=== PATIENT | female | born 1955 | race Caucasian/White ===

== ENCOUNTER 2018-12-06 20:40 | Observation (INO) | payer OTHER ==
[2018-12-06] MEDS ORDERED: DILTIAZEM 25 MG/5 ML VIAL IVP ONE (20:48)
[2018-12-06] MEDS ORDERED: MAGNESIUM SULF 2 GM/WATER 50 ML IV ONE (20:49)
[2018-12-06] MEDS ORDERED: MAGNESIUM SULF 2 GM/WATER 50 ML BAG IV ONE (20:50)
[2018-12-06] MEDS ORDERED: DILTIAZEM HCL/D5W 125 ML IV SCH (21:00)
[2018-12-06 21:08] LABS: INR 0.91 (0.83-1.16); PROTIME(PATIENT) 12.5 SEC (12.0-15.0)
--- NOTE | 2018-12-06 21:26 | EDPHY ---
H & P Time Seen by Provider: 12/06/18 20:40 HPI/ROS: HPI Palpitations. Shortness of breath. 63-year-old female by ambulance from [facility]. She is visiting from [place] with family. She arrived here yesterday. EMS reports that 20 min prior to arrival she developed sudden-onset sensation of palpitations and shortness of breath and a sensation of fullness in her upper chest and throat. They report room air pulse oximetry on arrival at 84%. They put 4 L of nasal cannula oxygen on her and her pulse oximetry came up to 98%. On arrival to the emergency department she is now feeling better but is still complaining of palpitations. EMS reports probable rapid atrial fibrillation. She does have a history of coronary artery disease but no prior history of atrial fibrillation. ROS: Constitutional: No fever, no chills. No weakness. Eyes: No discharge. No changes in vision. ENT: No sore throat. As above. No nasal congestion or rhinorrhea. Respiratory: No cough. As. Cardiac: No chest pain, as. Gastrointestinal: No abdominal pain, no vomiting, no diarrhea. Genitourinary: No hematuria. No dysuria or increased frequency with urination. Musculoskeletal: No back pain. No neck pain. No myalgias or arthralgias. Skin: No rashes. Neurological: No headache. No focal weakness or altered sensation. Past medical history: Coronary artery disease, , hypertension. Prescription medications include losartan. Social history: Nonsmoker. Here with family. As above. No alcohol PE Physical Exam: General Appearance: Alert, she appears uncomfortable but she is not in distress. This patient is responding to questions appropriately and in full sentences. This patient appears well-hydrated and well-nourished. Eyes: Pupils equal and round no pallor or injection. No lid edema, erythema or injection. ENT, Mouth: Mucous membranes are moist. The pharyngeal tissues are unremarkable. No edema or swelling. No asymmetry suggestive of abscess. No erythema or exudates. No cervical, submandibular, submental lymphadenopathy. No masses appreciated on palpation of the soft tissues of her neck. Respiratory: There are no retractions, lungs are clear to auscultation anteriorly with good air movement bilaterally. No tachypnea. Cardiovascular: Irregular irregular rhythm. Tachycardia.. No murmur appreciated. Gastrointestinal: Abdomen is soft and nontender, no masses, bowel sounds normal. No focal tenderness at McBurney's point. No Vaughan sign. Neurological: Motor sensory function is grossly intact. Cranial nerves are normal. Gait is normal. Skin: Warm and dry, no rashes. Musculoskeletal: Neck is supple and nontender. Extremities are symmetrical. All joints range without pain or impingement. Psychiatric: No agitation. No depression. Database: EKG: EKG time is 8:45 p.m.; EKG shows a narrow complex atrial fibrillation with ventricular rate of 156. The QRS, QT intervals are within normal limits. Diffuse ST depressions in lateral and precordial leads. No evidence of right heart strain. Interpreted by me. EKG time is 8:53 p.m.; EKG shows a narrow complex normal sinus rhythm with a ventricular rate of 77. Artifact noted. The WA, QRS, QT intervals are within normal limits. There are no ST-T wave changes indicative of ischemic or injury pattern. No evidence of right heart strain. Interpreted by me. Imaging: Chest x-ray AP portable; the cardiac mediastinal silhouette is unremarkable. No evidence of infiltrate or pneumothorax. No acute cardiopulmonary disease process noted. Interpreted by me. Soft tissue neck x-ray series: No evidence of epiglottitis or obstructive process. Interpreted by me. Procedures: Emergency department course: Vital signs on arrival to the emergency department, initial blood pressure is 169/64. Heart rate 155. radiation monitor displays narrow complex atrial fibrillation with RVR. IV placed x2. Patient started on slow IV diltiazem drip for rate control. Patient given 2 g of IV magnesium. Patient received approximately 10 mg of IV diltiazem and converted to a sinus rhythm with ventricular rate in the upper 70s. 9:40 p.m., patient re-evaluated, patient resting comfortably at this time. Blood pressure is 124/92. Patient is on 4 L of nasal cannula oxygen with pulse oximetry of 98%. radiation monitor shows a narrow complex sinus rhythm with ventricular rate of 74. Results of diagnostic workup discussed with the patient and her family. Plan for admission discussed. All of their questions were answered. Hospitalist paged. 9:45 p.m., case discussed with on-call hospitalist Dr. Carlene Phipps. Patient accepted for admission to the hospitalist service. Patient's remaining emergency department course under my care has been uneventful. She was admitted in stable condition Step-Down Unit. Differential Diagnosis: The differential diagnosis on this patient includes but is not limited to atrial fibrillation with rapid ventricular response, pulmonary embolism, acute coronary syndrome. This represents a partial list of diagnoses considered. These considerations are based on history, physical exam, past history, reassessment and diagnostic testing. Smoking Status: Never smoked Constitutional: Initial Vital Signs Temperature (C) 37.4 C 12/06/18 20:40 Heart Rate 155 H 12/06/18 20:40 Respiratory Rate 20 12/06/18 20:40 Blood Pressure 169/64 H 12/06/18 20:40 O2 Sat (%) 98 12/06/18 20:40 O2 Delivery Mode Nasal Cannula O2 (L/minute) 4 Allergies/Adverse Reactions: aspirin Allergy (Verified 12/06/18 21:23) codeine Allergy (Verified 12/06/18 21:23) losartan Allergy (Verified 12/06/18 20:48) Penicillins Allergy (Verified 12/06/18 21:23) Home Medications: Medication Instructions Recorded Atenolol 12/06/18 Calcium 12/06/18 Hydrochlorothiazide 12/06/18 Potassium Chloride 12/06/18 Pravastatin Sodium 12/06/18 Vitamin D3 12/06/18 Medical Decision Making - Diagnostics Imaging Results: Imaging Impressions Soft Tissue Neck X-Ray 12/06/18 21:05 Impression: 1. No significant swelling of the tonsils. 2. Facet hypertrophy mid to lower cervical spine. 3. Atherosclerotic calcifications noted around the carotid bulb level bilaterally. Chest X-Ray 12/06/18 21:11 Impression: 1. Poor inspiration with mild compressive atelectatic changes at the lung bases. 2. Mild cardiomegaly. - Data Points Laboratory Results: Laboratory Results 12/06/18 20:48 12/06/18 20:40 12/06/18 12/06/18 12/06/18 20:54 20:54 20:48 WBC RBC Hgb POC Hgb 16.0 gm/dL gm/dL (12.6-16.3) Hct POC Hct 47 % % (38-47) MCV MCH MCHC RDW Plt Count PT 12.5 SEC SEC (12.0-15.0) INR 0.91 (0.83-1.16) APTT 26.2 SEC SEC (23.0-38.0) D-Dimer 0.39 ug/mLFEU ug/mLFEU (0.00-0.50) POC Sodium 142 mEq/L mEq/L (135-145) Sodium POC Potassium 3.3 mEq/L mEq/L (3.3-5.0) Potassium POC Chloride 100 mEq/L mEq/L (97-110) Chloride Carbon Dioxide POC Total CO2 27 mEq/L mEq/L (22-31) Anion Gap POC BUN 8 mg/dL mg/dL (7-23) BUN Creatinine POC Creatinine 0.4 mg/dL L mg/dL (0.6-1.0) Estimated GFR Glucose POC Glucose 121 mg/dL H mg/dL (70-100) Calcium POC Troponin I 0.00 ng/mL ng/mL (0.00-0.08) TSH 12/06/18 12/06/18 20:48 20:40 WBC 13.01 10^3/uL H 10^3/uL (3.80-9.50) RBC 4.87 10^6/uL 10^6/uL (4.18-5.33) Hgb 14.3 g/dL g/dL (12.6-16.3) POC Hgb Hct 42.5 % % (38.0-47.0) POC Hct MCV 87.3 fL fL (81.5-99.8) MCH 29.4 pg pg (27.9-34.1) MCHC 33.6 g/dL g/dL (32.4-36.7) RDW 13.2 % % (11.5-15.2) Plt Count 271 10^3/uL 10^3/uL (150-400) PT INR APTT D-Dimer POC Sodium Sodium 136 mEq/L mEq/L (135-145) POC Potassium Potassium 3.6 mEq/L mEq/L (3.5-5.2) POC Chloride Chloride 98 mEq/L mEq/L (97-110) Carbon Dioxide 25 mEq/l mEq/l (22-31) POC Total CO2 Anion Gap 13 mEq/L mEq/L (6-14) POC BUN BUN 10 mg/dL mg/dL (7-23) Creatinine 0.5 mg/dL L mg/dL (0.6-1.0) POC Creatinine Estimated GFR > 60 Glucose 121 mg/dL H mg/dL (70-100) POC Glucose Calcium 9.9 mg/dL mg/dL (8.5-10.4) POC Troponin I TSH Pending Medications Given: Magnesium Sulfate (Magnesium Sulf 2 Gm (Premix)) 50 mls @ 50 mls/hr IV EDNOW ONE Stop: 12/06/18 21:48 Last Admin: 12/06/18 20:52 Dose: 50 mls Discontinued Medications Diltiazem HCl (Cardizem 25 Mg/5 Ml Vial) 25 mg IVP EDNOW ONE Stop: 12/06/18 20:49 Last Admin: 12/06/18 21:08 Dose: 5 mg Point of Care Test Results: Chemistry 12/06/18 12/06/18 20:54 20:54 POC Sodium 142 mEq/L mEq/L (135-145) POC Potassium 3.3 mEq/L mEq/L (3.3-5.0) POC Chloride 100 mEq/L mEq/L (97-110) POC Total CO2 27 mEq/L mEq/L (22-31) POC BUN 8 mg/dL mg/dL (7-23) POC Creatinine 0.4 mg/dL L mg/dL (0.6-1.0) POC Glucose 121 mg/dL H mg/dL (70-100) POC Troponin I 0.00 ng/mL ng/mL (0.00-0.08) ISTAT H&H 12/06/18 20:54 POC Hgb 16.0 gm/dL gm/dL (12.6-16.3) POC Hct 47 % % (38-47) Departure - Departure Disposition: [facility] Inpatient Acute Clinical Impression: Atrial fibrillation with rapid ventricular response, Dyspnea, Hypoxia Referrals: Patient,NotPresent [Primary Care Provider] - As per Instructions
[2018-12-06] MEDS ORDERED: ONDANSETRON DISINTEGRATING 4 MG TAB PO PRN (22:29)
[2018-12-06] MEDS ORDERED: ACETAMINOPHEN 325 MG TAB PO PRN (22:29)
[2018-12-06] MEDS ORDERED: ONDANSETRON 4 MG/2 ML VIAL IVP PRN (22:29)
[2018-12-06] MEDS ORDERED: POTASSIUM CL 20 MEQ TAB PO ONE (22:32)
[2018-12-06] MEDS ORDERED: CEPACOL LOZENGE PO ONE (22:57)
--- NOTE | 2018-12-06 22:58 | CPEKG ---
Test Reason : OPEN Blood Pressure : / mmHG Vent. Rate : 077 BPM Atrial Rate : 077 BPM P-R Int : 169 ms QRS Dur : 086 ms QT Int : 403 ms P-R-T Axes : 018 001 002 degrees QTc Int : 457 ms Sinus rhythm Confirmed by Ai Hebert ([id number]) on 12/06/2018 10:58:26 PM Referred By: PHYSICIAN ED Confirmed By:Ai Hebert
--- NOTE | 2018-12-06 22:58 | CPEKG ---
Test Reason : OPEN Blood Pressure : / mmHG Vent. Rate : 156 BPM Atrial Rate : 156 BPM P-R Int : 111 ms QRS Dur : 087 ms QT Int : 262 ms P-R-T Axes : 000 002 250 degrees QTc Int : 422 ms Atrial fibrillation with rapid V-rate Repolarization abnormality, prob rate related Confirmed by Ai Hebert ([id number]) on 12/06/2018 10:58:26 PM Referred By: PHYSICIAN ED Confirmed By:Ai Hebert
--- NOTE | 2018-12-07 02:31 | PDGENHP ---
History and Physical - Chief Complaint Shortness of breath - History of Present Illness 63 yo F w/ hx of HTN and HLD presents with shortness of breath. The patient is visiting from [place]. She tells me she noticed a sore throat this morning. This progressed in severity throughout the day. Then, suddenly around 7 PM, she began to feel very short of breath and called EMS for evaluation. In the ED she was initially noted to be in AF w/ RVR with HR in the 150's. She received a diltiazem bolus and quickly converted back to sinus rhythm with some improvement in her symptoms. She does continue to complain of sore, swollen throat. She is speaking and swallowing normally. She also remains mildly hypoxic at this time. She is being admitted for evaluation of new AF and hypoxia. Case discussed with Dr. Phipps; records reviewed and summarized above. History Information - Allergies/Home Medication List Allergies/Adverse Reactions: aspirin Allergy (Mild, Verified 12/06/18 22:17) codeine Allergy (Mild, Verified 12/06/18 22:17) losartan Allergy (Mild, Verified 12/06/18 22:17) Penicillins Allergy (Mild, Verified 12/06/18 22:17) Home Medications: Albuterol Sulfate [Ventolin Hfa] 1 puffs IH Q6H PRN 12/06/18 [Last Taken Unknown ] Alendronate Sodium [Fosamax 70 MG (*)] 70 mg PO TH@0700 12/06/18 [Last Taken ] Atenolol [Tenormin 25 mg (*)] 25 mg PO BID 12/06/18 [Last Taken 12/06/18 09:00] Ergocalciferol (Vitamin D2) [Vitamin D2] 2,000 unit PO DAILY 12/06/18 [Last Taken 12/06/18 09:00] Hydrochlorothiazide [HCTZ (*)] 25 mg PO DAILY 12/06/18 [Last Taken 12/06/18 09: 00] Potassium Chloride [Klor-Con 10] 10 meq PO DAILY 12/06/18 [Last Taken 12/06/18 09:00] Pravastatin Sodium 40 mg PO HS 12/06/18 [Last Taken 12/05/18 21:00] I have personally reviewed and updated: family history, medical history - Past Medical History hypertension, hyperlipidemia - Surgical History Additional surgical history: Tubal ligation - Family History Positive for: CAD (Father had [place] at age 81) - Social History Smoking Status: Never smoked Review of Systems Review of Systems: ROS: 10pt was reviewed & negative except for what was stated in HPI & below Physical Exam Physical Exam: Temp Pulse Resp BP Pulse Ox 37.4 C 77 18 133/86 H 97 12/06/18 20:40 12/06/18 22:27 12/06/18 22:27 12/06/18 22:27 12/06/18 22:27 O2 (L/minute) 4 Constitutional: no apparent distress, not in pain Eyes: PERRL, EOMI Ears, Nose, Mouth, Throat: moist mucous membranes, other (Mild pharyngeal erythema) Cardiovascular: regular rate and rhythym, no murmur, rub, or gallop Respiratory: no respiratory distress, clear to auscultation Gastrointestinal: normoactive bowel sounds, soft, non-tender abdomen Skin: warm, normal color Neurologic: AAOx3, CN II-XII Intact Psychiatric: interacting appropriately, not anxious Lab Data & Imaging Review 12/06/18 20:48 12/06/18 20:40 WBC 13.01 10^3/uL (3.80-9.50) H 12/06/18 20:48 RBC 4.87 10^6/uL (4.18-5.33) 12/06/18 20:48 Hgb 14.3 g/dL (12.6-16.3) 12/06/18 20:48 POC Hgb 16.0 gm/dL (12.6-16.3) 12/06/18 20:54 Hct 42.5 % (38.0-47.0) 12/06/18 20:48 POC Hct 47 % (38-47) 12/06/18 20:54 MCV 87.3 fL (81.5-99.8) 12/06/18 20:48 MCH 29.4 pg (27.9-34.1) 12/06/18 20:48 MCHC 33.6 g/dL (32.4-36.7) 12/06/18 20:48 RDW 13.2 % (11.5-15.2) 12/06/18 20:48 Plt Count 271 10^3/uL (150-400) 12/06/18 20:48 PT 12.5 SEC (12.0-15.0) 12/06/18 20:48 INR 0.91 (0.83-1.16) 12/06/18 20:48 APTT 26.2 SEC (23.0-38.0) 12/06/18 20:48 D-Dimer 0.39 ug/mLFEU (0.00-0.50) 12/06/18 20:48 POC Sodium 142 mEq/L (135-145) 12/06/18 20:54 Sodium 136 mEq/L (135-145) 12/06/18 20:40 POC Potassium 3.3 mEq/L (3.3-5.0) 12/06/18 20:54 Potassium 3.6 mEq/L (3.5-5.2) 12/06/18 20:40 POC Chloride 100 mEq/L (97-110) 12/06/18 20:54 Chloride 98 mEq/L (97-110) 12/06/18 20:40 Carbon Dioxide 25 mEq/l (22-31) 12/06/18 20:40 POC Total CO2 27 mEq/L (22-31) 12/06/18 20:54 Anion Gap 13 mEq/L (6-14) 12/06/18 20:40 POC BUN 8 mg/dL (7-23) 12/06/18 20:54 BUN 10 mg/dL (7-23) 12/06/18 20:40 Creatinine 0.5 mg/dL (0.6-1.0) L 12/06/18 20:40 POC Creatinine 0.4 mg/dL (0.6-1.0) L 12/06/18 20:54 Estimated GFR > 60 12/06/18 20:40 Glucose 121 mg/dL (70-100) H 12/06/18 20:40 POC Glucose 121 mg/dL (70-100) H 12/06/18 20:54 Calcium 9.9 mg/dL (8.5-10.4) 12/06/18 20:40 Magnesium 2.1 mg/dL (1.6-2.3) 12/06/18 21:55 POC Troponin I 0.00 ng/mL (0.00-0.08) 12/06/18 20:54 NT-Pro-B Natriuret Pep 219 pg/mL (0-125) H 12/06/18 21:55 TSH 1.140 uIU/mL (0.465-4.680) 12/06/18 20:40 Group A Strep Screen NEGATIVE (NEGATIVE) 12/07/18 00:50 Imaging Review: Imaging Impressions Soft Tissue Neck X-Ray 12/06/18 21:05 Impression: 1. No significant swelling of the tonsils. 2. Facet hypertrophy mid to lower cervical spine. 3. Atherosclerotic calcifications noted around the carotid bulb level bilaterally. Chest X-Ray 12/06/18 21:11 Impression: 1. Poor inspiration with mild compressive atelectatic changes at the lung bases. 2. Mild cardiomegaly. Visualized and Interpreted Chest x-ray results: Yes Chest X-Ray results: other (Mild vascular congestion, cardiomegaly) Visualized and Interpreted EKG results: Yes EKG Interpretation: Positive for: other (AF w/ RVR) Assessment & Plan Assessment: 63 yo F w/ HTN and HLD presents with AF w/ RVR and hypoxia. Plan: 1. AF w/ RVR - New diagnosis for this patient. She converted to NSR after a dose of diltiazem in the ED. [id number] of 3 denotes need for ongoing anticoagulation. - Monitor on telemetry - Already on atenolol for HTN as an outpatient, will continue - I discussed anticoagulation with patient, she would like to think about it and perhaps will defer until she sees her doctor in [place] 2. AHRF - Mild at this point requiring only 2 L/min O2 to maintain O2 sats > 89% . Cardiomegaly and vascular congestion on CXR (personally reviewed/interpreted) suspicious for possible CHF. - Continue O2 PRN to maintain O2 sats > 89% - TTE ordered for further evaluation - Consider furosemide if not improving - Incentive spirometry ordered 3. Sore throat - I suspect this is likely viral. Patient is complaining about feeling like her throat is closing up, but she is speaking and swallowing normally. Soft tissue XR in the ED was reassuring. - Respiratory PCR and strep screen ordered 4. HTN, HLD - Continue home medications Diet - Cardiac Code - Full Ppx - LMWH Dispo - Admit under observation status
[2018-12-07 06:29] LABS: PLATELET COUNT 251 10^3/uL (150-400)
[2018-12-07] MEDS ORDERED: Ergocalciferol (Vitamin D2) 2,000 UNIT PO SCH (09:00)
[2018-12-07] MEDS ORDERED: ENOXAPARIN 40 MG/0.4 ML SYR SC SCH (09:00)
[2018-12-07] MEDS ORDERED: ATENOLOL 25 MG TAB PO SCH (09:00)
[2018-12-07] MEDS ORDERED: HYDROCHLOROTHIAZIDE 25 MG TAB PO SCH (09:00)
[2018-12-07] MEDS ORDERED: ALBUTEROL 3 ML DEYVIAL IH PRN (09:15)
--- NOTE | 2018-12-07 09:28 | ASMTCMCOM ---
CM Note CM Note Notes: Pt is a 63 yo F presents with shortness of breath, atrial fib, apid ventricular resp, and hypoxia. Pt is visiting from [place]. Pt is admitted under observation, will likely discharge independently once medically stable. No CM needs identified at this time. CM available if needs arise. Plan: Independent once medically stable. Date Signed: 12/07/2018 09:27 AM Electronically Signed By:CATIE Webb
[2018-12-07 12:48] VITALS: BP 142/57
--- NOTE | 2018-12-07 15:35 | PDDCSUM ---
Discharge Summary Discharge Summary: Date of Admission: 12/06/2018 Date of Discharge: 12/07/2018 Consults: N/A Procedures: CXR, Neck Soft Tissue XR Followup: PCP Hospital Course Problem List: 63 yo F w/ HTN and HLD presented with AF w/ RVR and hypoxia. Plan: 1. AF w/ RVR - New diagnosis for this patient. She converted to NSR after a dose of diltiazem in the ED. [id number] of 3. - Monitored on telemetry, continued to be in NSR upon discharge - Already on atenolol for HTN as an outpatient, will continue - I discussed anticoagulation with patient, she would like to think about it and perhaps will defer until she sees her doctor in [place] 2. AHRF - Patient saturating in 90's on RA upon discharge. Mild Cardiomegaly and vascular congestion on CXR suspicious for possible CHF. - Weaned off of 02 - TTE ordered for further evaluation 3. Sore throat - I suspect this is likely viral. Patient is complaining about feeling like her throat is closing up, but she is speaking and swallowing normally. Soft tissue XR in the ED was reassuring. - Respiratory PCR and strep screen negative on admission 4. HTN, HLD - Continue home medications Time spent on discharge was >35 minutes with >50% of time spent on patient education and counseling.
--- NOTE | 2018-12-07 15:41 | ASDISCHSUM ---
Discharge Information Plan Status:Home with No Needs Medically Cleared to Leave: Discharge Date: D/C Disposition:Home, Routine, Self-Care ADT D/C Disposition: Projected Discharge Date:12/07/2018 12:00 AM Transportation at D/C:Family Discharge Delay Reason: Follow-Up Date:12/07/2018 12:00 AM Discharge Slot: Final Diagnosis: Placement Information Patient Contact Information Contact Name:OMAYRA Relationship:Corona Address: Work Phone: City: [facility] Phone: State/Zip Code: Email: Financial Information Financial Class:Medicare Advantage Plans Primary Plan Desc:[employer] [employer]ICARE ADV Primary Plan Number:[id number] Secondary Plan Desc: Secondary Plan Number: Assessment Information [facility] Progress Note CM Note CM Note Notes: Pt is a 63 yo F presents with shortness of breath, atrial fib, apid ventricular resp, and hypoxia. Pt is visiting from [place]. Pt is admitted under observation, will likely discharge independently once medically stable. No CM needs identified at this time. CM available if needs arise. Plan: Independent once medically stable. Date Signed: 12/07/2018 09:27 AM Electronically Signed By:CATIE Webb Case Management Discharge Plan Note Case Management Discharge Discharge Order Complete? Answers: Yes Patient to Obtain Answers: via Family Medications Transportation Arranged Answers: Family/Friends Discharge Comments Notes: CM met with pt to discuss discharge needs. Reports she is just visiting and can schedule follow-up prior to discharge. Her and daughter are supportive and able to transport and maintain medications. No other CM needs identified. Date Signed: 12/07/2018 03:39 PM Electronically Signed By:CATIE Webb Intervention Information Intervention Type:*Incorrect Registration Date of Service:12/07/2018 06:50 AM Patient Type:Inpatient Staff Member:HE Ruiz, Nola Hours: Discipline: Severity: Comment:
--- NOTE | 2018-12-07 15:41 | ASMTLACE ---
LACE Length of stay for Answers: Less than 1 day current admission Comorbidities - select Answers: Coronary Artery Disease all that apply Other Notes: HTN; HLD # of Emergency department Answers: 1-2 visits in the last 6 months Score: 4 Date Signed: 12/07/2018 03:41 PM Electronically Signed By:CATIE Webb
--- NOTE | 2018-12-07 16:21 | ECHO ---
[email or web address] [address] [address] Main: [phone] Fax: [email or web address] Echocardiogram Name: MANDY HOYOS MR#: [id number] Study Date: 12/07/2018 Study Time: 08:12 AM Date of : 1955 Age: 63 year(s) Height: 152.4 cm (60 in.) Weight: 74.84 kg (165 lb.) BSA: 1.72 m2 Gender: Female Examination: Echo Indication: New atrial fibrillation/hypoxia Image Quality: Good Contrast: Requested by: Bryant Workman BP: 121 mmHg/49 mmHg Heart Rate: Rhythm: Indication: New atrial fibrillation/hypoxia Procedure Staff Paint And Table Edger: Kathy Austin [facility] Reading Physician: Marcin Mathis MD Requesting Provider: Conclusions: Normal size left ventricle. The ejection fraction is estimated to be 65-70 %. No regional wall motion abnormality. Normal diastolic LV function. Normal appearing valvular structures. Mild mitral valve regurgitation is present. Trivial to mild tricuspid valve regurgitation. RVSP is 32mmHG.. No pericardial effusion. No prior study for comparison. Measurements: Chambers Valvular Assessment AV/MV Valvular Assessment TV/PV Normal Normal Normal Name Value Range Name Value Range Name Value Range Ao Julia (MM): 2.6 cm (2.2 cm-3.7 AV Vmax: 1.64 m/s (1 m/s-1.7 TR Vmax: 2.59 mm/s ( - ) cm) m/s) TR PGmax: 27 mmHg ( - ) IVSd (2D): 0.8 cm (0.6 cm-1.1 AV meanP mmHg ( - ) syst. PAP: 32 mmHg ( - ) cm) MV E Vmax: 0.73 m/s ( - ) LVDd (2D): 4.5 cm (3.9 cm-5.3 MV A Vmax: 0.97 m/s ( - ) cm) MV E/A: 0.75 ( - ) LVDs (2D): 2.4 cm (2.1 cm-4 cm) LVPWd (2D): 0.8 cm ( - ) LVEF (BP): 73 % (>=55 %) EF Range: 65-70 % Continued Measurements: Chambers Valvular Assessment AV/MV Valvular Assessment TV/PV Patient: MANDY HOYOS Study Date: 12/07/2018 Page 1 of 2 08:12 AM Name Value Name Value Name Value LADs: 3.8 cm MV E' Septal: 0.05 m/s CVP (est.): 5 mmHg LADs Lon.4 cm MV E/E' Septal: 14.70 LA Area: 19.2 cm2 MV E/E' Lateral: 11.70 LA Volume: 45 ml LA Volume Index: 26.2 ml/m2 Additional Vessels Name Value Ao Ascendin.1 cm Findings: Left Ventricle: Normal size left ventricle. No LV hypertrophy. Normal global systolic LV function. The ejection fraction is estimated to be 65-70 %. No regional wall motion abnormality. Normal diastolic LV function. Right Ventricle: Normal size right ventricle. Left Atrium: The left atrium is normal in size. Right Atrium: The right atrium is normal in size. Mitral Valve: The mitral valve is normal in appearance and function. Mild mitral valve regurgitation is present. Aortic Valve: The aortic valve is normal in appearance and function. There is no aortic valve regurgitation. Tricuspid Valve: The tricuspid valve is normal in appearance and function. Trivial to mild tricuspid valve regurgitation. The pulmonary artery pressure is normal. RVSP is 32mmHG.. Pulmonic Valve: The pulmonic valve is normal in appearance and function. Aorta: The aorta is normal. Pericardium: No pericardial effusion. There is pericardial fat. (No Signature Object) Patient: MANDY HOYOS Study Date: 12/07/2018 Page 2 of 2 08:12 AM [id number]
[2018-12-07] MEDS ORDERED: PRAVASTATIN SODIUM 40 MG TAB PO SCH (21:00)
== END 2018-12-07 15:30 | disposition home or self-care (01) ==
LOC: INTOOBSV 21:38 → F2N 22:20
PROVIDERS: ADMIT Internal Medicine; ATTEND Internal Medicine
DX: I48.91 Unspecified atrial fibrillation (principal); J96.01 Acute respiratory failure with hypoxia; J02.9 Acute pharyngitis, unspecified; I51.7 Cardiomegaly; I10 Essential (primary) hypertension; E78.5 Hyperlipidemia, unspecified; I25.10 Atherosclerotic heart disease of native coronary artery without angina pectoris; Z82.49 Family history of ischemic heart disease and other diseases of the circulatory system; Z88.0 Allergy status to penicillin
CPT/HCPCS: 70360; 71045; 93005; 93306; 96365; 96372; 96375; 99285; G0378; J1650; J3475; J7613; 82435-PO; 82565-PO; 82947-PO; 84132-PO; 84295-PO; 84484-ER; 84520-PO; 85014-ER